=== PATIENT | female | born 1945 | race African-American/Black ===

== ENCOUNTER 2018-01-01 11:26 | Emergency (ER) | payer OTHER ==
--- OUTSIDE RECORDS SUMMARY | 2018-01-01 11:28 | XMS REPORT | Clinical Summary ---
:1945 Author Organization [facility] Address [address] [place] [address] Care Team Providers Name Role Phone Asked, None Given Primary Care Provider Unavailable Allergies Not on File Current Medications Not on file Active Problems Not on file Encounters Date Type Specialty Care Team Description 11/20/2017 Ancillary Orders Procedural Jadiel Webb Congestive heart Cardiology PhD failure, unspecified congestive heart failure chronicity, unspecified congestive heart failure type 11/20/2017 Ancillary Orders Procedural Audelia Hinton Congestive heart supervisor hardboard failure, unspecified congestive heart failure chronicity, unspecified congestive heart failure type 10/18/2017 Hospital Encounter Procedural Jadiel Webb Congestive heart Cardiology PhD failure, unspecified congestive heart failure chronicity, unspecified congestive heart failure type 08/17/2017 Ancillary Orders Procedural Jadiel Webb Congestive heart Cardiology [place] failure, unspecified congestive heart failure chronicity, unspecified congestive heart failure type 08/16/2017 Hospital Encounter Procedural Jadiel Webb Congestive heart Cardiology PhD failure, unspecified congestive heart failure chronicity, unspecified congestive heart failure type after 12/31/2016 Social History Tobacco Use Types Packs/Day Years Used Date Never Assessed Sex Assigned at Date Recorded Not on file Last Filed Vital Signs Not on file Plan of Treatment Health Maintenance Due Date Last Done Comments BREAST CANCER SCREENING 10/10/1997 COLON CANCER SCREENING 10/10/1997 SHINGRIX VACCINE (#1) 10/10/1997 ZOSTER VACCINE 2007 PNEUMOCOCCAL POLYSACCHARIDE VACCINE AGE 65 AND OVER 10/10/2012 PNEUMOCOCCAL-13 10/10/2012 INFLUENZA VACCINE 03/06/2018 Procedures Procedure Name Priority Date/Time Associated Diagnosis Comments CV PACEMAKER DEFIB Routine 11/20/2017 10:32 AM Congestive heart REMOTE TECH SERVICE CDT failure, unspecified congestive heart failure chronicity, unspecified congestive heart failure type CV PACEMAKER DEFIB Routine 08/17/2017 9:41 AM Congestive heart REMOTE TECH SERVICE VULNERABILITY RESEARCHER failure, unspecified congestive heart failure chronicity, unspecified congestive heart failure type after 12/31/2016 Results CV pacemaker defib or ilr interrogation (11/20/2017 10:32 AM) Specimen Performing Laboratory [facility] [id number] [place] [address] Cv pacemaker defib or ilr interrogation (08/17/2017 9:41 AM) Specimen Performing Laboratory [facility] [id number] [place] [address] after 12/31/2016 Insurance Payer Benefit Plan / Group Subscriber ID Type Phone Address MEDICARE MEDICARE PART A AND B xxxxxxxxxx Medicare [place], [place] [phone] [facility] [address] [place] [id number]
--- NOTE | 2018-01-01 12:39 | RAD REPORT ---
EXAM DESCRIPTION: CT - Stone Protocol - 01/01/2018 12:20 pm CLINICAL HISTORY: Abdominal pain, right flank pain, dialysis patient COMPARISON: May 2017 TECHNIQUE: Axial 5 mm thick images were obtained without oral or IV contrast. The [id number] span s the entirety of the system partially obscuring uppermost abdomen and lung bases. All CT scans are performed using dose optimization technique as appropriate and may include automated exposure control or mA/KV adjustment according to patient size. FINDINGS: No hydronephrosis is present and no obstructing ureteral calculi. Cortical thinning is pre sent. Dense vascular calcifications are present. No assessment can be made of any renal function. Pat ient has numerous variably sized low-attenuation masses believed to be incidental cysts. Exophytic ma ss lateral mid to lower pole right kidney is not 18 mm in size, isodense to cortex. This is not subst antially different from prior imaging. In the inferior most aspect left kidney there are 2 adjacent i sodense to hyperdense masses 18 mm and 16 mm in size. These have slowly enlarged when compared to the 2 prior studies. Single most likely etiology would be high protein content cysts. These can be confi rmed with sonography or monitored with follow-up nonemergent renal ultrasound. Urinary bladder is ful ly contracted precluding assessment. Significant pelvic floor laxity is seen. Uterus is absent. Ovari es are absent or atrophic. Imaged portions of the liver, spleen and pancreas show no suspicious findings on non-contrast imaging . No biliary tree dilatation or gallbladder dilatation. Several small gallstones are present. An acut e gallbladder process is unlikely. No significant adrenal finding. Large amount of food is present filling but not dilating the stomach. The gastric wall mass or gastri c wall thickening not suspected. No dilated small bowel loops. Sigmoid colon is tortuous and redundan t with mild diverticulosis. No acute diverticulitis. No acute colon process seen. Patient has a moder ately large umbilical and supraumbilical hernia approximately 7 cm in diameter. This contains midport ion of the transverse colon. No colon wall thickening or edema. The hernia and herniated transverse c olon are similar to May. There is an additional ventral herniate defect more inferiorly measuring 4 cm in diameter with a 2 centimeter neck. This contains only fat with no edema or congestion. No mass or bulky lymphadenopathy. No omental thickening. No free air, free fluid or inflammatory stra nding. Disc and bony degenerative changes are present. No pathologic bone process seen. Very dense calcifica tions of the arterial tree noted. IMPRESSION: No bowel obstruction, free air or surgically emergent finding. No hydronephrosis or obstructing calculus. There may be little or no renal function. Significant yessi ical thinning present. Multiple variably sized round renal masses are present both hypodense and hyperdense in appearance. T hese are all believed to be cysts of simple fluid or high protein content. Two 18 mm and 16 mm masses at the inferior most aspect left kidney have enlarged over time but are st ill favored to be cysts. These can be monitored with CT imaging or follow-up nonemergent renal ultras ound. Moderately large umbilical and supraumbilical hernia with the superior hernia containing mid transver se colon. This is similar to May 2017. No acute finding at this site.
[2018-01-01 13:01] LABS: Absolute Monocytes 0.5 K/uL (0.1-1.3); Absolute Neutrophil 4.6 K/uL (1.8-8.0); Basophils % 0.7 % (0-1.3); Hematocrit 32.2 % (36.0-45.0); Lymphocytes % 15.3 % (15.3-44.8); MCH 29.3 pg (27.0-35.0); MCV 93.6 fL (80-100); MPV 10.6 fL (7.6-11.3); Monocytes % 8.8 % (3.3-12.3); RBC Red Blood Cell Count 3.44 M/uL (3.86-4.86)
[2018-01-01 13:18] LABS: Potassium 4.3 mEq/L (3.6-5.0)
[2018-01-01] MEDS ORDERED: ACETAMINOPHEN 325 MG TABLET ONE (13:23)
--- NOTE | 2018-01-01 13:38 | EDPHYS ---
Physician Documentation [facility] Name: Brooklyn Pabon Age: 72 yrs Sex: Female : 1945 Arrival Date: 01/01/2018 Time: 11:30 Bed 23 Private MD: ANGY AMARO ED Physician Troy Esteban HPI: 01/01 13:59 This 72 yrs old Black Female presents to ER via Wheelchair with complaints of Flank gs Pain. 13:59 The patient complains of pain in the right low back. The pain does not radiate. Onset: gs The symptoms/episode began/occurred 1 week(s) ago. Modifying factors: the symptoms are aggravated by movement, palpation/percussion. Associated signs and symptoms: Pertinent negatives: pain radiating to the lower extremities, incontinence. Severity of pain: At its worst the pain was moderate in the emergency department the pain is unchanged. The patient has experienced similar episodes in the past, multiple times. The patient has not recently seen a physician. Historical: - Allergies: 11:38 Allopurinol; hb 11:38 Vicodin; hb - Home Meds: 11:38 alprazolam 1 mg Oral tab 1 tab BID [Active]; amiodarone 200 mg Oral tab 1 tab 2 times hb per day [Active]; Eliquis 2.5 mg Oral tab 2 times per day [Active]; Humulin 70/30 100 unit/mL (70-30) Sub-Q susp 25 unit daily [Active]; Renvela 800 mg Oral tab 1 tab 3 times per day [Active]; tramadol 50 mg Oral tab 1 tab BID [Active]; - PMHx: 11:38 CHF; CVA; Diabetes - IDDM; Renal Disease; TIA; Dialysis - T/Th/Sat; hb - PSHx: 11:38 Tubal ligation; cataracts; Pacemaker/Defib; fistula- EULA; hb - Immunization history:: Adult Immunizations up to date. - Social history:: Smoking status: Patient/guardian denies using tobacco. - Ebola Screening: : No symptoms or risks identified at this time. ROS: 13:59 All other systems are negative. gs Exam: 13:59 Head/Face: Normocephalic, atraumatic. Eyes: Pupils equal round and reactive to light, gs extra-ocular motions intact. Lids and lashes normal. Conjunctiva and sclera are non-icteric and not injected. Cornea within normal limits. Periorbital areas with no swelling, redness, or edema. ENT: Nares patent. No nasal discharge, no septal abnormalities noted. Tympanic membranes are normal and external auditory canals are clear. Oropharynx with no redness, swelling, or masses, exudates, or evidence of obstruction, uvula midline. Mucous membranes moist. Neck: Trachea midline, no thyromegaly or masses palpated, and no cervical lymphadenopathy. Supple, full range of motion without nuchal rigidity, or vertebral point tenderness. No Meningismus. Chest/axilla: Normal chest wall appearance and motion. Nontender with no deformity. No lesions are appreciated. Cardiovascular: Regular rate and rhythm with a normal S1 and S2. No gallops, murmurs, or rubs. Normal PMI, no JVD. No pulse deficits. Respiratory: Lungs have equal breath sounds bilaterally, clear to auscultation and percussion. No rales, rhonchi or wheezes noted. No increased work of breathing, no retractions or nasal flaring. Abdomen/GI: Soft, non-tender, with normal bowel sounds. No distension or tympany. No guarding or rebound. No evidence of tenderness throughout. Skin: Warm, dry with normal turgor. Normal color with no rashes, no lesions, and no evidence of cellulitis. MS/ Extremity: Pulses equal, no cyanosis. Neurovascular intact. Full, normal range of motion. Neuro: Awake and alert, GCS 15, oriented to person, place, time, and situation. Cranial nerves II-XII grossly intact. Motor strength 5/5 in all extremities. Sensory grossly intact. Cerebellar exam normal. Normal gait. 13:59 Constitutional: The patient appears alert, awake. 13:59 Back: pain, that is moderate, of the right low back. Vital Signs: 11:36 BP 109 / 54; Pulse 62; Resp 16; Temp 98; Pulse Ox 94% on R/A; Pain 6/10; hb MDM: 11:56 Patient medically screened. 13:59 Differential diagnosis: ruptured AAA, back strain , arthritis. Data reviewed: vital gs signs, nurses notes. Response to treatment: the patient's symptoms have markedly improved after treatment, and as a result, I will discharge patient. 01/01 12:01 Order name: CBC with Diff; Complete Time: 13:36 01/01 12:01 Order name: Basic Metabolic Panel 01/01 12:01 Order name: CT Stone Protocol; Complete Time: 12:54 Administered Medications: 13:32 Drug: Tylenol 650 mg Route: PO; aj1 13:52 Follow up: Response: No adverse reaction aj1 Disposition: 01/01/18 13:38 Discharged to Home. Impression: Low back pain. - Condition is Stable. - Discharge Instructions: Back Pain, Adult. - Medication Reconciliation Form, Thank You Letter, Antibiotic Education, Prescription Opioid Use form. - Follow up: Emergency Department; When: 1 - 2 days; Reason: Re-evaluation by your physician. Signatures: Dispatcher [employer] EDJoana Mott RN RN aj1 Tasha Toledo RN RN Troy Esteban MD MD Corrections: (The following items were deleted from the chart) 14:04 13:38 01/01/2018 13:38 Discharged to Home. Impression: Low back pain. Condition is aj1 Stable. Forms are Medication Reconciliation Form, Thank You Letter, Antibiotic Education, Prescription Opioid Use. Follow up: Emergency Department; When: 1 - 2 days; Reason: Re-evaluation by your physician.
--- NOTE | 2018-01-01 13:38 | ER ---
Nurse's Notes [facility] Name: Brooklyn Pabon Age: 72 yrs Sex: Female : 1945 Arrival Date: 01/01/2018 Time: 11:30 Bed 23 Private MD: ANGY AMARO Diagnosis: Low back pain Presentation: 01/01 11:34 Presenting complaint: Patient states: Right flank pain x 1 week. Denies fever. HD hb T/Th/Sat, last Hd was Sunday. Does not make urine. Transition of care: patient was not received from another setting of care. Onset of symptoms is unknown. Care prior to arrival: None. 11:34 Method Of Arrival: Wheelchair hb 11:34 Acuity: JOSSELIN 3 hb 13:51 Risk Assessment: Do you want to hurt yourself or someone else? Patient reports no aj1 desire to harm self or others. Initial Sepsis Screen: Does the patient meet any 2 criteria? No. Patient's initial sepsis screen is negative. Does the patient have a suspected source of infection? No. Patient's initial sepsis screen is negative. Historical: - Allergies: 11:38 Allopurinol; hb 11:38 Vicodin; hb - Home Meds: 11:38 alprazolam 1 mg Oral tab 1 tab BID [Active]; amiodarone 200 mg Oral tab 1 tab 2 times hb per day [Active]; Eliquis 2.5 mg Oral tab 2 times per day [Active]; Humulin 70/30 100 unit/mL (70-30) Sub-Q susp 25 unit daily [Active]; Renvela 800 mg Oral tab 1 tab 3 times per day [Active]; tramadol 50 mg Oral tab 1 tab BID [Active]; - PMHx: 11:38 CHF; CVA; Diabetes - IDDM; Renal Disease; TIA; Dialysis - T/Th/Sat; hb - PSHx: 11:38 Tubal ligation; cataracts; Pacemaker/Defib; fistula- EULA; hb - Immunization history:: Adult Immunizations up to date. - Social history:: Smoking status: Patient/guardian denies using tobacco. - Ebola Screening: : No symptoms or risks identified at this time. Screenin:52 Abuse screen: Denies threats or abuse. Denies injuries from another. Nutritional aj1 screening: No deficits noted. Tuberculosis screening: No symptoms or risk factors identified. 13:51 Fall Risk None identified. aj1 Assessment: 12:40 Reassessment: Entered patient room to start IV and asses patient. Patient states that aj1 she doesn't think she needs blood work and she does not like the doctor who saw her. States that she thinks she might just go home. Patient then answered call on cell phone. Will give patient a few minutes to decide if she wants to stay/ wants blood work. 12:52 Reassessment: Went back to check on patient. Patient states "I haven't decided anything aj1 but I'll let you try and stick me" States that she is hurting a lot. Notified Dr. Esteban that patient requests pain medication. General: Appears uncomfortable, Behavior is restless. Pain: Complains of pain in right flank Pain does not radiate. Pain currently is 10 out of 10 on a pain scale. Quality of pain is described as sharp. Neuro: Level of Consciousness is awake, alert, obeys commands, Oriented to person, place, time, situation. Cardiovascular: Patient's skin is warm and dry. Respiratory: Airway is patent Respiratory effort is even, unlabored, Respiratory pattern is regular, symmetrical. GI: No signs and/or symptoms were reported involving the gastrointestinal system. : No signs and/or symptoms were reported regarding the genitourinary system. EENT: No signs and/or symptoms were reported regarding the EENT system. Derm: No signs and/or symptoms reported regarding the dermatologic system. Skin is normal. Musculoskeletal: Range of motion: intact in all extremities. 13:32 Reassessment: Patient states that she would like a meal tray because she has not eaten aj1 today. Notified Dr. Esteban of patient request. 13:45 Reassessment: Dr. Esteban at bedside to discuss results with patient. aj1 13:49 Reassessment: Patient declines to have vital signs rechecked. States that she just aj1 wants to leave. Vital Signs: 11:36 BP 109 / 54; Pulse 62; Resp 16; Temp 98; Pulse Ox 94% on R/A; Pain 6/10; hb ED Course: 11:30 Patient arrived in ED. sb2 11:31 ANGY AMARO is Private Physician. sb2 11:36 Triage completed. hb 11:37 Arm band placed on left wrist. 11:40 Troy Esteban MD is Attending Physician. 12:18 CT completed. Patient tolerated procedure well. Patient moved to CT via stretcher. Patient moved back from CT. 12:20 CT Stone Protocol In Process Unspecified. EDMS 12:30 Joana Brandt, RN is Primary Nurse. aj1 12:52 Patient has correct armband on for positive identification. Bed in low position. Call aj1 light in reach. Side rails up X 1. 12:52 No provider procedures requiring assistance completed. aj1 13:00 Inserted saline lock: 22 gauge in left antecubital area, using aseptic technique. Blood aj1 collected. 13:50 IV discontinued, intact, bleeding controlled, No redness/swelling at site. Pressure aj1 dressing applied. 13:54 Notified ED physician of a critical lab result(s). creatinine 12.43. Administered Medications: 13:32 Drug: Tylenol 650 mg Route: PO; aj1 13:52 Follow up: Response: No adverse reaction aj1 Outcome: 13:38 Discharge ordered by MD. 13:51 Discharged to home via wheelchair. aj1 13:51 Condition: good 13:51 Discharge instructions given to patient, Instructed on discharge instructions, follow up and referral plans. Demonstrated understanding of instructions, follow-up care. 14:04 Patient left the ED. aj1 Signatures: Dispatcher [employer] EDKY Joana Brandt, RN RN aj1 Torri Sanchez RN RN Nancy Lind Tasha Toledo RN RN Troy Esteban MD MD Karlee Talavera sb2 Corrections: (The following items were deleted from the chart) 13:34 12:40 Reassessment: Entered patient room to start IV and asses patient. Patient states aj1 that she doesn't think she needs blood work and she does not like the doctor who saw her. States that she thinks she might just go home. Patient then answer call on cell phone. Will give patient a few minutes to decide if she wants to stay/ wants blood work aj1
[2018-01-01 14:08] VITALS: BP 109/54; TEMP 98; O2SAT 94
== END 2018-01-01 14:04 | disposition home or self-care (01) ==
LOC: ER 11:26
DX: M54.5 Low back pain (principal); I50.9 Heart failure, unspecified; E11.9 Type 2 diabetes mellitus without complications; N28.9 Disorder of kidney and ureter, unspecified; Z99.2 Dependence on renal dialysis; Z86.73 Personal history of transient ischemic attack (TIA), and cerebral infarction without residual deficits; Z79.4 Long term (current) use of insulin; Z79.02 Long term (current) use of antithrombotics/antiplatelets; Z88.5 Allergy status to narcotic agent; Z88.8 Allergy status to other drugs, medicaments and biological substances; Z95.810 Presence of automatic (implantable) cardiac defibrillator
CPT/HCPCS: 36415; 74176; 76377; 80048; 85025; 99284